=== PATIENT | female | born 1975 | race Caucasian/White ===

== ENCOUNTER 2024-01-07 07:45 | Day surgery (SDC) | payer MEDICAID ==
[~2024-01-07] VITALS: Ht 154.9 cm; Wt 104.3 kg
[2024-01-07] MEDS ORDERED: MEPERIDINE 100 MG INJ. 100 MG/ML VIAL ONE (08:18)
[2024-01-07] MEDS ORDERED: MIDAZOLAM HCL 5 MG/5 ML VIAL ONE (08:19)
[2024-01-07 08:25] LABS: HCG,QUAL RESULT NEGATIVE (NEGATIVE)
[2024-01-07 09:00] VITALS: O2SAT 99
[2024-01-07 13:51] VITALS: BP_SYST 119; PULSE 61; RESP 18
== END 2024-01-07 10:26 | disposition home or self-care (01) ==
LOC: SDS 07:45 → SMU 07:47 → SDS 10:26
PROVIDERS: ATTEND Internal Medicine Gastroenterology
DX: Z12.11 Encounter for screening for malignant neoplasm of colon (principal); D12.8 Benign neoplasm of rectum; K64.8 Other hemorrhoids; J45.909 Unspecified asthma, uncomplicated; Z91.041 Radiographic dye allergy status; Z91.048 Other nonmedicinal substance allergy status; Z90.49 Acquired absence of other specified parts of digestive tract; Z79.899 Other long term (current) drug therapy
CPT/HCPCS: 45381; 45385; 84703; 88305; 99153; 99152; G0378; J2250; J2175; 45384